=== PATIENT | male | born 1965 | race Caucasian/White ===

== ENCOUNTER → 2020-08-07 | Outpatient (CLI) | payer OTHER ==
[~2020-08-07] MED LIST: ALPR.5T PO; AZIT-21 PO; BSP5T PO; CETI10CA PO; SERT50TA PO; [UNRECOGNIZED DRUG - REMARK]
--- NOTE | 2020-08-07 15:15 | Diagnostic Imaging Report ---
PROCEDURE: CT chest without contrast. TECHNIQUE: Multiple contiguous axial images were obtained through the chest without the use of intravenous contrast. Auto Exposure Controls were utilized during the CT exam to meet ALARA standards for radiation dose reduction. INDICATION: History of injury to the left chest 13 years ago with continued pain. CORRELATION: 02/21/2008 FINDINGS: There is no significant mediastinal, axillary and/or hilar lymphadenopathy. Mild stranding anterior mediastinum, unchanged. The heart size is unremarkable. Thoracic aorta normal in contour. The lung dumont are clear of infiltrate. No significant pleural effusion. There is rather pronounced asymmetric heterogeneity within the liver. This most noticeable through the dome as well as the right hepatic lobe. Also appears to be suggestion of some contour irregularity particularly to the right lobe. Spleen is normal in size. No significant upper abdominal ascites. The visualized osseous structures demonstrate no acute findings. No definitive chest wall abnormality. IMPRESSION: 1. Negative for acute abnormality of the chest. In particular, no definitive left chest wall abnormality. 2. There is noted markedly abnormal appearance about the liver. Findings are nonspecific. This could be attributed to asymmetric fatty infiltration or chronic liver disease including early cirrhosis. Possibility of underlying infiltrative processes including neoplasm is definitely in the differential. Correlation with laboratory liver function tests as well as a contrast-enhanced CT imaging of the abdomen would be recommended for followup assessment. Dictated by: Dictated on workstation # [id number]
== END ==
LOC: RAD 14:45
PROVIDERS: ATTEND Nurse Practitioner Community Health
DX: R10.12 Left upper quadrant pain (principal)
CPT/HCPCS: 71250

== ENCOUNTER 2023-01-04 05:39 | Outpatient (CLI) | payer BC ==
[~2023-01-04] VITALS: Ht 170.2 cm; Wt 64.4 kg
[2023-01-05] MEDS ORDERED: ATOR40TA70 PO (13:16)
[2023-01-05] MEDS ORDERED: VILA20TA2 PO (13:16)
[2023-01-05] MEDS ORDERED: BUPR300T98 PO (13:16)
[2023-01-05] MEDS ORDERED: LISI10TA25 PO (13:16)
== END 2023-01-05 13:23 | disposition home or self-care (01) ==
LOC: PREOP 05:39
PROVIDERS: ATTEND Surgery
DX: Z01.818 Encounter for other preprocedural examination (principal)

== ENCOUNTER 2023-01-17 09:29 | Day surgery (SDC) | payer BC, OTHER ==
[~2023-01-17] VITALS: Ht 170.2 cm; Wt 64.4 kg
[~2023-01-17 09:29] MED LIST changes: +ATOR40TA70 PO; +BUPR300T98 PO; +LISI10TA25 PO; +VILA20TA2 PO
[2023-01-17] MEDS ORDERED: LACTATED RINGERS 1,000 ML IV STA (09:44)
[2023-01-17] MEDS ORDERED: PROPOFOL INJECTION 50 ML IV ONE (10:17)
[2023-01-17 10:20] VITALS: BP 149/106
--- NOTE | 2023-01-17 10:41 | Progress Note-Post Operative ---
Post-Operative Progess Note Surgeon (s)/Occupational Therapist Rehab Manager (s) Surgeon OSMEL VILLALOBOS DO Occupational Therapist Rehab Manager: na Pre-Operative Diagnosis screening colonoscopy Post-Operative Diagnosis normal colon Procedure & Operative Findings Date of Procedure 01/17/23 Procedure Performed/Findings colonoscopy Anesthesia Type per PHARMACEUTICAL COMPOUNDING SUPERVISOR Estimated Blood Loss Estimated blood loss (mL): none Specimens/Packing Specimens Removed none OSMEL VILLALOBOS DO January 17, 2023 10:41
--- NOTE | 2023-01-17 10:42 | Discharge Inst-Simple/Standard ---
Discharge Inst-Standard Patient Instructions/Follow Up Plan of Care/Instructions/FU: see Tobi in two weeks Activity as Tolerated: Yes Discharge Diet: Regular Diet OSMEL VILLALOBOS DO January 17, 2023 10:42
[2023-01-17 10:44] VITALS: BP 176/109
[2023-01-17 10:50] VITALS: BP 176/102
[2023-01-17 11:22] VITALS: BP 176/102
--- NOTE | 2023-01-17 12:04 | Anesthesia-General Post-Op ---
MAC Patient Condition Mental Status/LOC: Same as Preop Cardiovascular: Satisfactory Nausea/Vomiting: Absent Respiratory: Satisfactory Pain: Controlled Complications: Absent Post Op Complications Complications None Follow Up Care/Instructions Patient Instructions None needed. Anesthesiology Discharge Order Discharge Order Patient is doing well, no complaints, stable vital signs, no apparent adverse anesthesia problems. No complications reported per nursing. VLADIMIR VALENZUELA CRNA January 17, 2023 12:04
--- NOTE | 2023-01-17 19:13 | OPERATIVE REPORT ---
DATE OF SERVICE: 01/17/2023 PREOPERATIVE DIAGNOSIS: Screening colonoscopy. POSTOPERATIVE DIAGNOSIS: Normal colon. PROCEDURE: Colonoscopy. SURGEON: Osmel Britton DO ANESTHESIA: Per BLOOD BANK LABORATORY TECHNICIAN. ESTIMATED BLOOD LOSS: None. COMPLICATIONS: None. INDICATIONS: The patient is a 57-year-old male, needing screening colonoscopy. He understands risks and benefits of procedure and wishes to proceed. Consent was signed in chart. DESCRIPTION OF PROCEDURE: The patient was taken to the operating suite, placed in left lateral recumbent position. Timeout was performed. Digital rectal exam was performed. No palpable polyps, masses or ulcerations. Scope was inserted in the rectum and advanced all the way to the cecum with minimal difficulty. Prep was adequate. Scope was slowly retracted back. No polyps, masses or ulcerations within the cecum, ascending, transverse, descending and sigmoid colon. Once in the rectum, scope was retroflexed noting no other pathology. Scope was returned to its normal position, slowly withdrawn until completely removed. The patient tolerated the procedure well without complications, taken to recovery room in stable condition. RECOMMENDATIONS: The patient will need repeat colonoscopy in 10 years unless family history of colon cancer, which will then be 5 years. Any issues before that, be seen at that time. The patient will follow up in 2 weeks to discuss hernia repair. Job ID: [id number] DocumentID: [id number] Dictated Date: 01/17/2023 10:41:01 Fitter Up Date: 01/17/2023 19:11:00 Dictated By: OSMEL BRITTON DO
== END 2023-01-17 11:33 | disposition home or self-care (01) ==
LOC: ENDO 09:29
PROVIDERS: ATTEND Surgery
DX: Z12.11 Encounter for screening for malignant neoplasm of colon (principal); K42.9 Umbilical hernia without obstruction or gangrene; F17.210 Nicotine dependence, cigarettes, uncomplicated

== ENCOUNTER → 2023-02-03 | Outpatient (CLI) | payer BC ==
[2023-02-03 09:19] LABS: BASOPHILS % (AUTO) 1 % (0-10); EOSINOPHILS # (AUTO) 0.1 10^3/uL (0.0-0.3); EOSINOPHILS % (AUTO) 2 % (0-10); HEMATOCRIT 34 % (40-54); HEMOGLOBIN 11.9 g/dL (13.3-17.7); LYMPHOCYTES # (AUTO) 0.6 10^3/uL (1.0-4.0); LYMPHOCYTES % (AUTO) 13 % (12-44); MEAN CORPUSCULAR HEMOGLOBIN 33 pg (25-34); MEAN CORPUSCULAR HGB CONC 35 g/dL (32-36); MEAN CORPUSCULAR VOLUME 94 fL (80-99); MEAN PLATELET VOLUME 10.1 fL (9.0-12.2); MONOCYTES # (AUTO) 0.5 10^3/uL (0.0-1.0); MONOCYTES % (AUTO) 10 % (0-12); NEUTROPHILS # (AUTO) 3.6 10^3/uL (1.8-7.8); NEUTROPHILS % (AUTO) 74 % (42-75); PLATELET COUNT 208 10^3/uL (130-400); WHITE BLOOD COUNT 4.9 10^3/uL (4.3-11.0)
[2023-02-03 09:27] LABS: ALBUMIN 3.7 GM/DL (3.2-4.5)
[2023-02-03 09:28] LABS: POTASSIUM 3.9 MMOL/L (3.6-5.0)
[2023-02-03 09:30] LABS: TOTAL PROTEIN 6.3 GM/DL (6.4-8.2)
[2023-02-03 09:32] LABS: BILIRUBIN,TOTAL 0.8 MG/DL (0.1-1.0)
[2023-02-03 09:34] LABS: CREATININE SERUM 0.78 MG/DL (0.60-1.30)
[2023-02-03 09:35] LABS: BILIRUBIN,DIRECT 0.5 MG/DL (0.0-0.3); BILIRUBIN,INDIRECT 0.3 MG/DL
== END ==
LOC: LAB 08:48
PROVIDERS: ATTEND Surgery
DX: R10.9 Unspecified abdominal pain (principal)
CPT/HCPCS: 36415; 80053; 80076; 85025

== ENCOUNTER → 2023-02-14 | Outpatient (CLI) | payer BC ==
--- NOTE | 2023-02-14 14:28 | Diagnostic Imaging Report ---
INDICATION: PROCEDURE: Ultrasound abdomen complete. TECHNIQUE: Multiple real-time grayscale images were obtained of the abdomen in various projections. INDICATION: Abdominal distention. History of umbilical hernia COMPARISON: None FINDINGS: Cirrhotic change to the liver is noted. No focal suspicious hepatic mass is identified. Portal vein shows normal hepatopetal flow. There is no sonographic evidence of intra or extrahepatic biliary ductal dilatation. Common bile duct measures 3 mm in diameter. Moderate ascites is present within the abdomen. Gallbladder is visualized. Gallbladder wall is thickened. It measures 4-5 mm in thickness. Mobile gallstone is noted. Visualized portions the head and proximal body of pancreas unremarkable. Distal body and tail are not well visualized due to overlying bowel gas. Spleen measures 10.7 x 4 x 5 cm. No suspicious splenic masses are seen. Visualized portions of abdominal aorta and IVC are unremarkable. Periumbilical hernia is noted and primarily contains ascites. There was transient herniation of a loop of bowel. Both kidneys measure approximately 10 cm in length and have a normal sonographic appearance. There is no evidence of calculus or hydronephrosis. IMPRESSION: 1. Periumbilical hernia. This does primarily contain ascites, although note was made of transient herniation of loop of bowel 2. Moderate ascites. 3. Background cirrhotic changes of the liver. 4. Cholelithiasis. Although there is thickening of the gallbladder wall, this may be related to underlying liver disease. If there is concern for acute cholecystitis, HIDA scan is advised. Dictated by: Dictated on workstation # [id number]
== END ==
LOC: RAD 08:21
PROVIDERS: ATTEND Surgery
DX: K80.20 Calculus of gallbladder without cholecystitis without obstruction (principal); K74.60 Unspecified cirrhosis of liver; K42.9 Umbilical hernia without obstruction or gangrene
CPT/HCPCS: 76700

== ENCOUNTER → 2023-02-21 | Outpatient (CLI) | payer BC ==
[2023-02-21 22:50] LABS: HEPATITIS C ANTIBODY C Non-Reactive (Non-Reactive)
== END ==
LOC: LAB 11:33
PROVIDERS: ATTEND Surgery
DX: R10.9 Unspecified abdominal pain (principal)
CPT/HCPCS: 36415; 80074

== ENCOUNTER 2023-04-03 07:44 | Outpatient (CLI) | payer BC ==
[~2023-04-03] VITALS: Ht 167 cm; Wt 64.4 kg
[2023-04-03 08:02] VITALS: BP 116/73
--- NOTE | 2023-04-03 09:30 | Diagnostic Imaging Report ---
PROCEDURE: US Abdomen, limited. TECHNIQUE: Multiple Real-time grayscale images were obtained over the abdomen in various projections. INDICATION: 57-year-old male, ascites. CORRELATION STUDY: None. FINDINGS: There is presence of ascites within all 4 quadrants of the abdomen. IMPRESSION: Abdominal ascites in all 4 quadrants of the abdomen. Dictated by: Dictated on workstation # [id number]
== END 2023-04-03 08:35 | disposition home or self-care (01) ==
LOC: SDC 07:44
PROVIDERS: ATTEND Surgery
DX: R18.8 Other ascites (principal)
CPT/HCPCS: 76705